=== PATIENT | female | born 1995 ===

== ENCOUNTER 2023-05-21 16:09 | Outpatient (CLI) | payer OTHER | END 2023-05-21 16:12 | disposition home or self-care (01) | LOC: PRENATAL 16:09 | PROVIDERS: ATTEND Obstetrics & Gynecology Maternal & Fetal Medicine | DX: O35.3XX0 Maternal care for (suspected) damage to fetus from viral disease in mother, not applicable or unspecified (principal); O44.00 Complete placenta previa NOS or without hemorrhage, unspecified trimester; O09.219 Supervision of pregnancy with history of pre-term labor, unspecified trimester; Z3A.21 21 weeks gestation of pregnancy ==

== ENCOUNTER 2023-09-05 13:12 | Outpatient (CLI) | payer OTHER | END 2023-09-05 13:13 | disposition home or self-care (01) | LOC: PRENATAL 13:12 | PROVIDERS: ATTEND Obstetrics & Gynecology Maternal & Fetal Medicine | DX: O26.843 Uterine size-date discrepancy, third trimester (principal); O36.8130 Decreased fetal movements, third trimester, not applicable or unspecified; Z3A.36 36 weeks gestation of pregnancy; Z87.51 Personal history of pre-term labor ==